=== PATIENT | female | born 2000 | race Caucasian/White ===

== ENCOUNTER 2021-01-13 21:47 | Observation (INO) | payer BC ==
[~2021-01-13] VITALS: Ht 162 cm; Wt 57.2 kg
[2021-01-13 22:07] LABS: BILIRUBIN,URINE NEGATIVE (NEGATIVE); CLARITY,URINE CLEAR; COLOR,URINE YELLOW; GLUCOSE, URINE (UA) NEGATIVE (NEGATIVE); KETONES,URINE NEGATIVE (NEGATIVE); LEUKOCYTE ESTERASE ,URINE NEGATIVE (NEGATIVE); NITRITE,URINE NEGATIVE (NEGATIVE); PROTEIN,URINE NEGATIVE (NEGATIVE)
[2021-01-13 22:15] LABS: AMORPHOUS SEDIMENT,UR RARE AMOR URATES /LPF; BACTERIA,URINE NEGATIVE /HPF
[2021-01-13] MEDS ORDERED: LACTATED RINGERS 1,000 ML IV ONE (22:15)
[2021-01-13 22:17] LABS: BASOPHILS # (AUTO) 0.1 10^3/uL (0.0-0.1); BASOPHILS % (AUTO) 1 % (0-10); EOSINOPHILS # (AUTO) 0.1 10^3/uL (0.0-0.3); EOSINOPHILS % (AUTO) 1 % (0-10); HEMATOCRIT 33 % (35-52); HEMOGLOBIN 11.1 g/dL (11.5-16.0); LYMPHOCYTES # (AUTO) 1.4 10^3/uL (1.0-4.0); LYMPHOCYTES % (AUTO) 12 % (12-44); MEAN CORPUSCULAR HEMOGLOBIN 27 pg (25-34); MEAN CORPUSCULAR HGB CONC 33 g/dL (32-36); MEAN CORPUSCULAR VOLUME 82 fL (80-99); MEAN PLATELET VOLUME 10.1 fL (9.0-12.2); MONOCYTES # (AUTO) 1.4 10^3/uL (0.0-1.0); MONOCYTES % (AUTO) 12 % (0-12); NEUTROPHILS # (AUTO) 8.4 10^3/uL (1.8-7.8); NEUTROPHILS % (AUTO) 74 % (42-75); PLATELET COUNT 276 10^3/uL (130-400); WHITE BLOOD COUNT 11.4 10^3/uL (4.3-11.0)
[2021-01-13 22:24] LABS: AMPHETAMINE SCREEN, URINE NEGATIVE (NEGATIVE); BARBITURATE SCREEN URINE NEGATIVE (NEGATIVE); BENZODIAZEPINES SCREEN URINE NEGATIVE (NEGATIVE); CANNABINOID SCREEN, URINE POSITIVE (NEGATIVE); COCAINE SCREEN URINE NEGATIVE (NEGATIVE); METHADONE STAT NEGATIVE (NEGATIVE); METHAMPHETAMINE SCREEN URINE S NEGATIVE (NEGATIVE); OPIATE SCREEN URINE NEGATIVE (NEGATIVE); OXYCODONE STAT NEGATIVE (NEGATIVE); PROPOXYPHENE STAT NEGATIVE (NEGATIVE); TRICYCLIC ANTIDEPRESSANTS SCRE NEGATIVE (NEGATIVE)
[2021-01-13 22:24] LABS: ALBUMIN 4.1 GM/DL (3.2-4.5); POTASSIUM 3.4 MMOL/L (3.6-5.0)
[2021-01-13 22:25] LABS: CALCIUM 9.2 MG/DL (8.5-10.1)
[2021-01-13 22:26] LABS: TOTAL PROTEIN 7.3 GM/DL (6.4-8.2)
[2021-01-13 22:28] LABS: BILIRUBIN,TOTAL 0.6 MG/DL (0.1-1.0)
[2021-01-13 22:30] LABS: CREATININE SERUM 0.82 MG/DL (0.60-1.30)
[2021-01-13] MEDS ORDERED: IOHEXOL 350 MG/ML 100 ML (OMNIPAQUE 350) VIAL IV ONE (23:15)
[2021-01-13] MEDS ORDERED: NS 100 ML (IVPB) BAG IV ONE (23:15)
[2021-01-13] MEDS ORDERED: HOLD METFORMIN - RECEIVED CONTRAST 20 ML VIAL IV SCH (23:15)
[2021-01-13] MEDS ORDERED: CATHETER FLUSH 10 ML SYR IV PRN (23:15)
--- NOTE | 2021-01-13 23:19 | Diagnostic Imaging Report ---
PROCEDURE: CT abdomen and pelvis with contrast, rule out appendicitis. TECHNIQUE: Multiple contiguous axial images were obtained through the abdomen and pelvis after the administration of intravenous contrast. All CT scans use one or more of the following dose optimizing techniques: automated exposure control, MA and/or KvP adjustment based on patient size and exam type or iterative reconstruction. INDICATION: 20-year-old female, right lower quadrant pain with nausea onset earlier this morning. CORRELATION STUDY: None. FINDINGS: LOWER THORAX: Clear. LIVER: Unremarkable. GALLBLADDER: Present and unremarkable. No bile duct dilatation. SPLEEN: Unremarkable. PANCREAS: Unremarkable. ADRENAL GLANDS: Unremarkable. KIDNEYS: Probable small right cortical cyst. No significant obstruction. ABDOMINAL AORTA: Unremarkable, nonaneurysmal. GASTROINTESTINAL TRACT: Stomach is distended with retained gastric contents. No small bowel obstruction. Cecum sits low within the right lower quadrant. The appendix cannot be definitively localized. There is question of slight haziness in the right lower quadrant with trace amount of pelvic fluid. URINARY BLADDER: Unremarkable. REPRODUCTIVE: Tampon is present. Uterus deviated slightly towards the right. Slight fullness of the bilateral adnexa may reflect small cysts and/or follicles with trace amount of pelvic fluid. OSSEOUS STRUCTURES: No acute abnormality. OTHER: None. IMPRESSION: 1. The appendix cannot be definitively localized on this examination, therefore cannot be cleared. Cecum sits very low within the pelvis and there is redundancy of the colon. There does appear to be a small amount of fluid particularly in the right lower quadrant. Additionally, there is suspect for potential small ovarian cyst. Ultimately, findings are inconclusive and indeterminate. Dictated by: Dictated on workstation # [id number]
[2021-01-13] MEDS ORDERED: PIPERACILLIN SODIUM/TAZOBACTAM 4.5 GM in NS (IVPB) 100 ML IV ONE (23:45)
[2021-01-13] MEDS ORDERED: KETOROLAC 30 MG/ML VIAL IVP ONE (23:45)
[2021-01-14] VITALS (11 sets, daily range): BP systolic 103–134; BP diastolic 58–72
[2021-01-14] MEDS ORDERED: D5 1/2 NS W/KCL 20 MEQ/L 1,000 ML IV ONE (00:49)
[2021-01-14] MEDS ORDERED: LEVO25TA5 PO (01:16)
[2021-01-14] MEDS ORDERED: ONDANSETRON 4 MG/2 ML (SDV) Z0FRAN IVP PRN ×2 (02:30→13:45)
[2021-01-14] MEDS: D5 1/2 NS W/KCL 20 MEQ/L 1,000 ML IV SCH ×3 (05:38→15:26)
[2021-01-14] MEDS: PIPERACILLIN/TAZO 4.5 GM/NS 100 ML IV SCH ×4 (05:39→14:05)
[2021-01-14] MEDS: KETOROLAC 30 MG/ML VIAL IV PRN ×2 (06:42→12:01)
[2021-01-14 06:50] LABS: BASOPHILS # (AUTO) 0.1 10^3/uL (0.0-0.1); BASOPHILS % (AUTO) 1 % (0-10); EOSINOPHILS # (AUTO) 0.1 10^3/uL (0.0-0.3); EOSINOPHILS % (AUTO) 1 % (0-10); HEMATOCRIT 31 % (35-52); HEMOGLOBIN 10.2 g/dL (11.5-16.0); LYMPHOCYTES # (AUTO) 1.5 10^3/uL (1.0-4.0); LYMPHOCYTES % (AUTO) 15 % (12-44); MEAN CORPUSCULAR HEMOGLOBIN 27 pg (25-34); MEAN CORPUSCULAR HGB CONC 33 g/dL (32-36); MEAN CORPUSCULAR VOLUME 83 fL (80-99); MEAN PLATELET VOLUME 10.3 fL (9.0-12.2); MONOCYTES # (AUTO) 1.6 10^3/uL (0.0-1.0); MONOCYTES % (AUTO) 17 % (0-12); NEUTROPHILS # (AUTO) 6.1 10^3/uL (1.8-7.8); NEUTROPHILS % (AUTO) 65 % (42-75); PLATELET COUNT 243 10^3/uL (130-400); WHITE BLOOD COUNT 9.5 10^3/uL (4.3-11.0)
[2021-01-14 07:03] LABS: POTASSIUM 3.6 MMOL/L (3.6-5.0)
[2021-01-14 07:04] LABS: CALCIUM 8.3 MG/DL (8.5-10.1)
[2021-01-14 07:08] LABS: CREATININE SERUM 0.76 MG/DL (0.60-1.30)
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
[2021-01-14] MEDS ORDERED: morphine INJ 10 MG/ML 1ML (SYR OR VIAL) IVP STA (10:18)
--- NOTE | 2021-01-14 11:31 | Consultation - Surgery ---
LAUREN MCCLAIN MED STUDENT 01/14/21 1131: History of Present Illness History of Present Illness Patient Consulted On(sarah/time) 01/14/21 11:21 Date Seen by Provider: Jan 14, 2021 Time Seen by Provider: 07:45 History of Present Illness This is Sofie a 20 yo female that presented to the ED yesterday with symptoms of appendicitis. Surgery was consulted. Upon entering the room Pt was laying in bed with mild discomfort watching TV with her father present. She stated that for the past two days she has experienced loss of appetite and RLQ abdominal pain that she described as crampy and sharp in nature. 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 She stated that the 8 hour bus ride was difficult and the pain was worse with any form of movement. She descr ibes feeling nauseous and vomiting once yesterday. Pt put the pain at a 9/10 last night when she decided to go to the ED. The pain today is better at a 4/10. Allergies and Home Medications Allergies Coded Allergies: No Known Drug Allergies (Unverified , 01/13/21) Patient Home Medication List Levothyroxine Sodium (Levothyroxine Sodium) 25 Mcg Tablet, 25 MCG PO DAILY, (Reported) Entered as Reported by: AD COOLEY on 01/14/21 0116 Last Action: New Order Past Rksopqf-Pwryed-Empvgx Hx Patient Social History Smoking Status: Never a Smoker 2nd Hand Smoke Exposure: No Recent Hopitalizations: No Alcohol Use?: No Substance type: Marijuana (weekly ) Have you traveled recently?: No Surgeries History of Surgeries: Yes (NOSE SURGERY, ORAL/DENTAL SURGERY) Surgeries: Adenoidectomy, Tonsillectomy Respiratory History of Respiratory Disorde: No Cardiovascular History of Cardiac Disorders: No Neurological History of Neurological Disord: No Reproductive System : No Hx Reproductive Disorders: Yes (IRREGULAR PERIODS) Genitourinary History of Genitourinary Disor: No Gastrointestinal History of Gastrointestinal Di: No Musculoskeletal History of Musculoskeletal Dis: No Endocrine History of Endocrine Disorders: Yes Endocrine Disorders: Hypothyroidsim (treated with levothyoxine) HEENT History of HEENT Disorders: Yes (T&A; NOSE SURGERY; ORAL/DENTAL SURGERY) Cancer History of Cancer: No Psychosocial History of Psychiatric Problem: Yes Behavioral Health Disorders: Anxiety (past 3-4 weeks) Integumentary History of Skin or Integumenta: No Blood Transfusions History of Blood Disorders: No Family Medical History Significant Family History: Other Conditions/Hx (hypothyroidism- father) Review of Systems-General Constitutional: No chills, No diaphoresis, No dizziness, No fever; weakness; No weight gain, No weight loss EENTM: No ear discharge, No ear pain, No blurred vision, No double vision, No e ye pain, No vision loss, No hoarseness, No mouth pain, No throat pain Respiratory: cough; No dyspnea on exertion, No hemoptysis, No phlegm; short of breath Cardiovascular: No chest pain, No edema, No Hx of Intervention, No palpitations Gastrointestinal: RLQ, abdominal pain (RLQ), constipation; No diarrhea, No hematemesis; loss of appetite; No melena; nausea, vomiting Genitourinary: No decreased output, No discharge, No dysuria, No frequency, No hematuria, No pain : No Musculoskeletal: No back pain, No joint pain, No muscle pain, No muscle stiffness, No neck pain Skin: No change in color, No dryness, No lesions, No rash Psychiatric/Neurological: Anxiety; Denies Depressed, Denies Emotional Problems; Headache; Denies Seizure; Weakness Physical Exam-General Problems Physical Exam Vital Signs Vital Signs - First Documented 01/13/21 22:06 Temp 37.3 Pulse 114 Resp 18 B/P (MAP) 137/84 (101) Pulse Ox 98 O2 Delivery Room Air Capillary Refill : Less Than 3 Seconds General Appearance: WD/WN, mild distress HEENT: PERRL/EOMI, pharynx normal Neck: non-tender, supple, normal inspection Respiratory: chest non-tender, lungs clear, normal breath sounds, no respiratory distress, no accessory muscle use Cardiovascular: normal peripheral pulses, regular rate, rhythm, no edema, no gallop, no murmur Gastrointestinal: soft, no pulsatile mass, guarding, tenderness (RLQ pain to palpation) Rectal: deferred Back: normal inspection, CVA tenderness (L) (thoracic rib out of place) Extremities: non-tender, normal inspection, no pedal edema, no calf tenderness, normal capillary refill Neurologic/Psychiatric: no motor/sensory deficits, alert, normal mood/affect, oriented x 3 Skin: normal color, warm/dry Lymphatic: no adenopathy (cervical and supraclavicular) Data Review Labs Laboratory Tests 01/13/21 21:56: Urine Color YELLOW, Urine Clarity CLEAR, Urine pH 6.0, Urine Specific Be[place]ah <=1.005, Urine Protein NEGATIVE, Urine Glucose (UA) NEGATIVE, Urine Ketones NEGATIVE, Urine Nitrite NEGATIVE, Urine Bilirubin NEGATIVE, Urine Urobilinogen 0.2, Urine Leukocyte Esterase NEGATIVE, Urine RBC (Auto) NEGATIVE, Urine RBC NONE, Urine WBC NONE, Urine Squamous Epithelial Cells NONE, Urine Crystals PRESENTH, Urine Amorphous Sediment RARE ALVIN URATESH, Urine Bacteria NEGATIVE, Urine Casts NONE, Urine Mucus NEGATIVE, Urine Culture Indicated NO, Urine Opiates Screen NEGATIVE, Urine Oxycodone Screen NEGATIVE, Urine Methadone Screen NEGATIVE, Urine Propoxyphene Screen NEGATIVE, Urine Barbiturates Screen NEGATIVE, Ur Tricyclic Antidepressants Screen NEGATIVE, Urine Phencyclidine Screen NEGATIVE, Urine Amphetamines Screen NEGATIVE, Urine Methamphetamines Screen NEGATIVE, Urine Benzodiazepines Screen NEGATIVE, Urine Cocaine Screen NEGATIVE, Urine Cannabinoids Screen POSITIVEH 01/13/21 22:07: White Blood Count 11.4H, Red Blood Count 4.06, Hemoglobin 11.1L, Hematocrit 33L, Mean Corpuscular Volume 82, Mean Corpuscular Hemoglobin 27, Mean Corpuscular Hemoglobin Concent 33, Red Cell Distribution Width 12.5, Platelet Count 276, Mean Platelet Volume 10.1, Immature Granulocyte % (Auto) 1, Neutrophils (%) (Auto) 74, Lymphocytes (%) (Auto) 12, Monocytes (%) (Auto) 12, Eosinophils (%) (Auto) 1, Basophils (%) (Auto) 1, Neutrophils # (Auto) 8.4H, Lymphocytes # (A uto) 1.4, Monocytes # (Auto) 1.4H, Eosinophils # (Auto) 0.1, Basophils # (Auto) 0.1, Immature Granulocyte # (Auto) 0.1, Sodium Level 140, Potassium Level 3.4L, Chloride Level 106, Carbon Dioxide Level 23, Anion Gap 11, Blood Urea Nitrogen 7, Creatinine 0.82, Estimat Glomerular Filtration Rate 88, BUN/Creatinine Ratio 9, Glucose Level 129H, Calcium Level 9.2, Corrected Calcium 9.1, Total Bilirubin 0.6, Aspartate Amino Transf (AST/SGOT) 18, Alanine Aminotransferase (ALT/SGPT) 24, Alkaline Phosphatase 71, Total Protein 7.3, Albumin 4.1, Amylase Level 46, Lipase 37, Serum Test, Qualitative NEGATIVE 01/14/21 06:38: White Blood Count 9.5, Red Blood Count 3.77L, Hemoglobin 10.2L, Hematocrit 31L, Mean Corpuscular Volume 83, Mean Corpuscular Hemoglobin 27, Mean Corpuscular Hemoglobin Concent 33, Red Cell Distribution Width 12.6, Platelet Count 243, Mean Platelet Volume 10.3, Immature Granulocyte % (Auto) 1, Neutrophils (%) (Auto) 65, Lymphocytes (%) (Auto) 15, Monocytes (%) (Auto) 17H, Eosinophils (%) (Auto) 1, Basophils (%) (Auto) 1, Neutrophils # (Auto) 6.1, Lymphocytes # (Auto) 1.5, Monocytes # (Auto) 1.6H, Eosinophils # (Auto) 0.1, Basophils # (Auto) 0.1, Immature Granulocyte # (Auto) 0.1, Sodium Level 139, Potassium Level 3.6, Chloride Level 106, Carbon Dioxide Level 23, Anion Gap 10, Blood Urea Nitrogen 7, Creatinine 0.76, Estimat Glomerular Filtration Rate 96, BUN/Creatinine Ratio 9, Glucose Level 117H, Calcium Level 8.3L Assessment/Plan Assessment/Plan Assessment/Plan Assessment: symptomatic appendicitis RLQ abdominal pain left sided costovertebral pain- thoracic rib out of place hypothyroidism Plan: NPO continue antibiotics control nausea IV fluids SANDRINE HENDRIX DO 01/14/21 1224: History of Present Illness History of Present Illness Time Seen by Provider: 08:16 History of Present Illness Surgery asked to consult/admit pt regarding RLQ pain. When I saw pt this morning she only had mild pain, stated she really eaten in 3- 4 days and when she tried she vomited. She thought the pain was better but not gone. Still having sharp pain and only pain meds making it better. Pain not really radiating anywhere, but it is in RUQ and RLQ. Allergies and Home Medications Allergies Coded Allergies: No Known Drug Allergies (Unverified , 01/13/21) Patient Home Medication List Home Medication List Reviewed: Yes Levothyroxine Sodium (Levothyroxine Sodium) 25 Mcg Tablet, 25 MCG PO DAILY, (Reported) Entered as Reported by: AD COOLEY on 01/14/21 0116 Last Action: New Order Past Cizixco-Doakdk-Asewbp Hx Patient Social History Smoking Status: Never a Smoker 2nd Hand Smoke Exposure: No Recent Hopitalizations: No Alcohol Use?: No Substance type: Marijuana (weekly ) Surgeries History of Surgeries: Yes Surgeries: Adenoidectomy, Tonsillectomy Respiratory History of Respiratory Disorde: No Cardiovascular History of Cardiac Disorders: No Neurological History of Neurological Disord: No Reproductive System : No Genitourinary History of Genitourinary Disor: No Gastrointestinal History of Gastrointestinal Di: No Musculoskeletal History of Musculoskeletal Dis: No Endocrine History of Endocrine Disorders: Yes Endocrine Disorders: Hypothyroidsim (treated with levothyoxine) HEENT History of HEENT Disorders: Yes HEENT Disorders: Tonsilitis Loss of Vision: Denies Hearing Impairment: Denies Cancer History of Cancer: No Psychosocial History of Psychiatric Problem: Yes Behavioral Health Disorders: Anxiety (past 3-4 weeks) Family Medical History Significant Family History: Other Conditions/Hx (hypothyroidism- father) Review of Systems-General Constitutional: No chills, No diaphoresis, No dizziness, No fever; weakness EENTM: No ear discharge, No ear pain, No blurred vision, No double vision, No throat pain Respiratory: cough; No dyspnea on exertion, No hemoptysis, No phlegm, No short of breath Cardiovascular: No chest pain, No edema, No palpitations Gastrointestinal: RLQ, abdominal pain (RLQ), constipation; No diarrhea, No hematemesis; loss of appetite; No melena; nausea, vomiting Genitourinary: No dysuria, No frequency, No hematuria : No Musculoskeletal: No back pain, No joint pain, No muscle pain, No muscle stiffness, No neck pain Skin: No change in color, No dryness, No lesions Psychiatric/Neurological: Anxiety; Denies Depressed, Denies Emotional Problems; Headache; Denies Seizure; Weakness Physical Exam-General Problems Physical Exam General Appearance: WD/WN, mild distress Eyes: Bilateral Eye PERRL, Bilateral Eye EOMI HEENT: pharynx normal; No scleral icterus (R), No scleral icterus (L) Neck: non-tender, full range of motion, supple Respiratory: chest non-tender, lungs clear, normal breath sounds, no respiratory distress, no accessory muscle use Cardiovascular: regular rate, rhythm, no murmur Gastrointestinal: soft, no organomegaly, no pulsatile mass, guarding (voluntary), tenderness (RLQ pain to palpation) Rectal: deferred Back: no vertebral tenderness, CVA tenderness (L) (thoracic rib out of place) Extremities: non-tender, normal inspection, no pedal edema, no calf tenderness 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 TECHNIQUE: Multiple contiguous axial images were obtained through the abdomen and pelvis after the administration of intravenous contrast. All CT scans use one or more of the following dose optimizing techniques: automated exposure control, MA and/or KvP adjustment based on patient size and exam type or iterative reconstruction. INDICATION: 20-year-old female, right lower quadrant pain with nausea onset earlier this morning. CORRELATION STUDY: None. FINDINGS: LOWER THORAX: Clear. LIVER: Unremarkable. GALLBLADDER: Present and unremarkable. No bile duct dilatation. SPLEEN: Unremarkable. PANCREAS: Unremarkable. ADRENAL GLANDS: Unremarkable. KIDNEYS: Probable small right cortical cyst. No significant obstruction. ABDOMINAL AORTA: Unremarkable, nonaneurysmal. GASTROINTESTINAL TRACT: Stomach is distended with retained gastric contents. No small bowel obstruction. Cecum sits low within the right lower quadrant. The appendix cannot be definitively localized. There is question of slight haziness in the right lower quadrant with trace amount of pelvic fluid. URINARY BLADDER: Unremarkable. REPRODUCTIVE: Tampon is present. Uterus deviated slightly towards the right. Slight fullness of the bilateral adnexa may reflect small cysts and/or follicles with trace amount of pelvic fluid. OSSEOUS STRUCTURES: No acute abnormality. OTHER: None. IMPRESSION: 1. The appendix cannot be definitively localized on this examination, therefore cannot be cleared. Cecum sits very low within the pelvis and there is redundancy of the colon. There does appear to be a small amount of fluid particularly in the right lower quadrant. Additionally, there is suspect for potential small ovarian cyst. Ultimately, findings are inconclusive and indeterminate. Dictated by: Dictated on workstation # [id number] Dict: 01/13/21 2305 Trans: 01/14/[address] [place] [address] [id number] Interpreted by: MICHOACANO ROSADO DO Electronically signed by: MICHOACANO ROSADO DO 01/14/21 0001 Assessment/Plan Assessment/Plan Assessment/Plan R/O Appendicitis with RLQ pain Decreased appetite Hx of hypothyroidism I had a long discussion with pt and her father; had reviewed the CT myself and it is hard to find appendix, in fact not really seen. I did not see an appendicolith. Pt's WBC came down to normal 9.5 from 11.4, but she is still having pain. I talked about the fact that we used to always take the appendix out, but have now realized that it does not always have to be removed. She does not have an appendicolith, which would most likely obligate her to surgery. I gave them options; 1) go home now 2) stay overnight to get a little bit more IV ABX and see if she continues to improve 3) go to surgery. I think the safest thing to do is stay at least overnight (we are trying to avoid surgery because that would probably interfere with track) and if she improves can go home on oral ABX. I did tell them that roughly 30% of people treated this way still have to have their appendix out. They understood and all questions answered to their satisfaction. Supervisory-Addendum Brief Verification & Attestation Participated in pt care: history, MDM, physical Personally performed: exam, history, MDM, supervision of care Care discussed with: Medical Student Procedures: n/a Verification and Attestation of Medical Student E/M Service A medical student performed and documented this service. I then reviewed and verified all information documented by the medical student and made modifications to such information, when appropriate. I personally performed a physical exam, medical decision making and then discussed any differences between the notes and made revisions as necessary to create one note. Sandrine Hendrix , 01/14/21 , 12:32 LAUREN MCCLAIN MED STUDENT Jan 14, 2021 11:31 SANDRINE HENDRIX DO Jan 14, 2021 12:24
[2021-01-14] MEDS ORDERED: MIDAZOLAM 2 MG/2 ML (VERSED) VIAL ONE (13:08)
[2021-01-14] MEDS ORDERED: ONDANSETRON 4 MG/2 ML (SDV) Z0FRAN ONE (13:08)
[2021-01-14] MEDS ORDERED: LIDOCAINE PF 2% 5 ML (XYLOCAINE) VIAL ONE (13:08)
[2021-01-14] MEDS ORDERED: proPOfol 200 MG/20 ML (DIPRIVAN) VIAL IV ONE (13:08)
[2021-01-14] MEDS ORDERED: SEVOFLURANE (ULTANE) 15 ML INHAL SOLN ONE (13:08)
[2021-01-14] MEDS ORDERED: fentaNYL INJ 100 MCG/2 ML AMP ONE (13:08)
[2021-01-14] MEDS ORDERED: ROCURONIUM 50 MG/5 ML (ZEMURON) VIAL IV ONE (13:09)
[2021-01-14] MEDS ORDERED: LIDOCAINE/EPI 1%-1:100,000 (XYLOCAINE) 20ML ONE (13:22)
[2021-01-14] MEDS ORDERED: LACTATED RINGERS 1,000 ML IV PRN ×2 (13:45→14:15)
[2021-01-14] MEDS ORDERED: HYDROmorphone 2 MG/ML VIAL (DILAUDID) IV ONE (13:45)
[2021-01-14] MEDS ORDERED: KETOROLAC 30 MG/ML VIAL ONE (14:21)
--- NOTE | 2021-01-14 14:32 | Progress Note-Post Operative ---
Post-Operative Progess Note Surgeon (s)/Squeegeer And Former (s) Surgeon SANDRINE HENDRIX DO Squeegeer And Former: FRANSISCO Hernández Pre-Operative Diagnosis acute appy Post-Operative Diagnosis acute appy abscess cavity under right fallopian tube Procedure & Operative Findings Date of Procedure 01/14/21 Procedure Performed/Findings PROCEDURE: Laparoscopic appendectomy. COMPLICATIONS: None. INDICATIONS: The patient is a 20 year old female who has been having right lower quadrant abdominal pain. Patient's exam consistent with appendicitis. I discussed risk and benefits of laparoscopic appendectomy and all indicated procedures with the possibility being a normal appendix. The patient understands the risks and benefits and wishes to proceed. Consent was signed on the chart. DESCRIPTION OF PROCEDURE: The patient was taken to the operating suite, prepped and draped in a sterile fashion. Timeout was performed. Local anesthetic was infiltrated just above the umbilicus and 11-blade scalpel was used to make a skin incision. Cautery was used to dissect down to the fascia and scored. Kochers were used to grasp and elevate it and the abdomen was then entered. An 0 Vicryl was placed in a [id number] fashion for closure at the end of the case. The balloon trocar was inserted into the abdomen and pneumoperitoneum was achieved. Under direct visualization of the laparoscope, a 5 mm trocar was placed in the suprapubic region and a 5 mm trocar was placed in the left lower quadrant. Appendix was located, it was thickened, had erythema, and felt firm. Both fallopian tubes also looked a little firm and erythematous, right more than left. Started taking the mesoappendix down and going through appendiceal artery with Ligusure. The base of the appendix was dissected around. Once at the base an Endo-LOREN 2.5 stapler was then fired across the base of the appendix. It was then placed in an Endobag and removed through the 12 mm trocar site. The abdomen was then irrigated and suctioned. Looked at both ovaries; which looked fine, but found an abscess cavity under fallopian tube. Pulled out some fibrinous material and will send to pathology; also took pictures of this area. The abdomen was then desufflated and the trocars were removed. The 0 Vicryl placed at the beginning of the case was then tied closing the 12 mm fascial defect. The skin was then closed using 4-0 Monocryl in a subcuticular fashion. The abdomen was then washed and dried and Skin Affix was placed over the incisions. The patient tolerated the procedure well without any complications and was taken to the recovery room in stable condition. Anesthesia Type GET Estimated Blood Loss Estimated blood loss (mL): scant Specimens/Packing Specimens Removed appy portion of abscess cavity SANDRINE HENDRIX DO Jan 14, 2021 14:32
[2021-01-14] MEDS ORDERED: ACHD5005 PO (14:33)
--- NOTE | 2021-01-14 14:34 | Discharge Inst-Surgical ---
Discharge Inst-Surgical Depart Medication/Instructions New, Converted or Re-Newed RX: Transmitted to Pharmacy Patient Instructions Follow up Appt: Make appointment for 1 week. [phone] Instructions: No lifting greater than 20 pounds. No strenuous activity. May shower in 24 hours, no tub bath or soaking. Use incentive spirometer at home as directed. No Smoking Skin/Wound Care: May remove bandages in am. You need to leave the Dermabond on incision it will fall off on it's own. Symptoms to Report: Appetite Changes, Extremity Discoloration, Numbness/Tingling, Swelling Increased, Bleeding Excessive, Eyesight Changes, Pain Increased, Urine Color Change, Constipation(Persistent), Fever over 101 degree F, Pain/Pressure in chest, Urinating Difficulty, Cough Up/Vomit Blood, Heart Beat Irreg/Pounding, Pain/Pressure in jaw, Cramps in feet or legs, Lightheadedness, Pain/Pressure in shoulder, Diarrhea(Persistent), Memory Changes Suddenly, Questions/Concerns, Weight gain consecutive days, Dizziness/Fainting, Nausea/Vomiting, Shortness of Breath, Weight gain over 2 pounds If questions or concerns contact your physician Or seek help at emergency department. Activity Activity as Tolerated: Yes Activity Instructions: Avoid Stress to Incision Driving Instructions: No Driving/Refer to Dr. Maki Discharge Diet: No Restrictions Diet After 24 Hours: Clear Liquid if Nauseous If Any Problems/Questions/Issu: Contact Your Physician, Go to Emergency Room Skin/Wound Care Infection Signs and Symptoms: Increased Redness, Foul Odor of Wound, Increased Drainage, Skin Itchy or Has a Rash, Increased Swelling, Temperature Above 101 F Wound Care Comment: heating pad to shoulder or neck tonight for pain Bathing Instructions: Shower Stitches/[place]/Dermabond Dis: Dermabond Ice Pack: Ice On and Off Site SANDRINE HENDRIX DO Jan 14, 2021 14:34
--- NOTE | 2021-01-14 14:46 | Anesthesia-General Post-Op ---
General Patient Condition Mental Status/LOC: Same as Preop Cardiovascular: Satisfactory Nausea/Vomiting: Absent Respiratory: Satisfactory Pain: Controlled Complications: Absent Post Op Complications Complications None Follow Up Care/Instructions Patient Instructions None needed. Anesthesia/Patient Condition Patient Condition Patient is doing well, no complaints, stable vital signs, no apparent adverse anesthesia problems. No complications reported per nursing. D/C home per [facility] Criteria: Yes DELMAR JULIO CRNA Jan 14, 2021 14:46
[2021-01-14] MEDS ORDERED: HYDR-34 PO (15:22)
== END 2021-01-14 16:50 | disposition home or self-care (01) ==
LOC: ER 21:49 → 4TH 23:35
PROVIDERS: ADMIT Surgery; ATTEND Surgery
DX: K35.80 Unspecified acute appendicitis (principal); R07.81 Pleurodynia; E03.9 Hypothyroidism, unspecified; F41.9 Anxiety disorder, unspecified; Z79.890 Hormone replacement therapy; Z90.89 Acquired absence of other organs
CPT/HCPCS: 36415; 74177; 80048; 80053; 80306; 81000; 82150; 83690; 84703; 85025; 87070; 87075; 87205; 88304; 96361; 96365; 96375